=== PATIENT | female | born 1975 | race Hispanic/Latino ===

== ENCOUNTER → 2023-11-10 | Day surgery (SDC) | payer OTHER ==
[~2023-11-10] MED LIST: AMLODIPINE BESY10 MG PO; DEXMEDETOMIDINE HCL 200 MCG/2 ML VIAL ONE; DIOVAN160 MG PO; GLUCOTROL XL10 MG PO; HYOSCYAMINE SULFATE 0.5 MG/ML INJ ONE; KETAMINE 50MG/5ML SYR ONE; LIDOCAINE HCL 2% LOCAL INJ 5 ML SDV VIAL INJ ONE; LIPITOR10 MG PO; METFORMIN HCL500 MG PO; METOCLOPRAMIDE HCL 10 MG/2ML VIAL ONE; PROPOFOL IV EMULSION 10 MG/ML 50 ML VIAL IV ONE; VALSARTAN-HCTZ1 EAC3 PO
[2023-11-10] MEDS: LACTATED RINGER'S 1,000 ML ONE (06:46)
[2023-11-10 08:55] VITALS: TEMP 98.2
[2023-11-10 09:25] VITALS: BP 103/63; PULSE 73; RESP 16; O2SAT 96
== END | disposition home or self-care (01) ==
LOC: OR 06:24
PROVIDERS: ATTEND Internal Medicine Gastroenterology
DX: Z12.11 Encounter for screening for malignant neoplasm of colon (principal); K63.5 Polyp of colon; K64.8 Other hemorrhoids; I10 Essential (primary) hypertension; E78.5 Hyperlipidemia, unspecified; E11.9 Type 2 diabetes mellitus without complications; E66.9 Obesity, unspecified; Z01.810 Encounter for preprocedural cardiovascular examination; Z79.84 Long term (current) use of oral hypoglycemic drugs; Z79.899 Other long term (current) drug therapy
CPT/HCPCS: 45385; 81025; 93005; J1980; J2001; J2704; J2765; J7121; 45378